=== PATIENT | female | born 1965 | race Caucasian/White ===

== ENCOUNTER 2025-01-31 14:29 | Emergency (ER) | payer OTHER ==
[~2025-01-31] VITALS: Ht 157.5 cm; Wt 86.0 kg
[2025-01-31 14:33] VITALS: TEMP 37; O2SAT 97
[2025-01-31] MEDS: ACETAMINOPHEN 325MG TABLET PO ONE (17:21)
[2025-01-31] MEDS ORDERED: IBUP-2029 MT (18:19)
[2025-01-31] MEDS ORDERED: ACET-2708 MT (18:19)
[2025-01-31] MEDS: IBUPROFEN 600MG TABLET PO ONE (18:33)
[2025-01-31 18:55] VITALS: BP 174/79; PULSE 64; RESP 18; O2SAT 100
== END 2025-01-31 18:57 | disposition home or self-care (01) ==
LOC: EDBD 14:29 → ER 14:29
DX: S52.591A Other fractures of lower end of right radius, initial encounter for closed fracture (principal); S00.83XA Contusion of other part of head, initial encounter; M25.531 Pain in right wrist; E11.9 Type 2 diabetes mellitus without complications; W10.9XXA Fall (on) (from) unspecified stairs and steps, initial encounter; Y93.01 Activity, walking, marching and hiking; Y92.89 Other specified places as the place of occurrence of the external cause; Y99.8 Other external cause status
CPT/HCPCS: 29125; 73090; 73110; 73610; 81025; 99284